=== PATIENT | female | born 1960 | race Native Hawaiian/Other Pacific Islander ===

== ENCOUNTER 2017-04-01 10:43 | Outpatient (CLI) | payer OTHER | END 2017-04-01 19:35 | disposition home or self-care (01) | LOC: RAD 10:43 | DX: R07.89 Other chest pain (principal) ==

== ENCOUNTER 2017-06-22 09:53 | Outpatient (CLI) | payer OTHER | END 2017-06-22 19:36 | disposition home or self-care (01) | LOC: RAD 09:53 | DX: R07.89 Other chest pain (principal); M25.562 Pain in left knee ==

== ENCOUNTER 2018-07-06 08:47 | Outpatient (CLI) | payer OTHER | END 2018-07-06 23:49 | disposition home or self-care (01) | LOC: MAMMO 08:47 | DX: Z12.31 Encounter for screening mammogram for malignant neoplasm of breast (principal) ==

== ENCOUNTER 2018-07-13 07:20 | Day surgery (SDC) | payer OTHER ==
[2018-07-13 08:26] LABS: PLATELET COUNT 276 K/uL (152-353)
== END 2018-07-13 10:40 | disposition home or self-care (01) ==
LOC: OR 07:20
PROVIDERS: Student in an Organized Health Care Education/Training Program
PROC: 0DBE8ZZ Excision of Large Intestine, Via Natural or Artificial Opening Endoscopic (ICD-10-PCS; principal; 2018-07-13)
DX: D12.6 Benign neoplasm of colon, unspecified (principal); Z12.11 Encounter for screening for malignant neoplasm of colon
CPT/HCPCS: 80053; 85027; J2001; J2250; J2405; J2704

== ENCOUNTER 2019-02-21 12:11 | Outpatient (CLI) | payer OTHER | END 2019-02-21 19:59 | disposition home or self-care (01) | LOC: CT 12:11 | DX: G44.89 Other headache syndrome (principal) ==

== ENCOUNTER 2019-02-28 11:52 | Outpatient (CLI) | payer OTHER | END 2019-02-28 20:26 | disposition home or self-care (01) | LOC: US 11:52 | DX: R42 Dizziness and giddiness (principal) ==

== ENCOUNTER 2020-03-19 15:05 | Outpatient (CLI) | payer OTHER | END 2020-03-19 23:23 | disposition home or self-care (01) | LOC: RAD 15:05 | PROVIDERS: ATTEND Nurse Practitioner Family | DX: M79.602 Pain in left arm (principal) ==

== ENCOUNTER 2020-08-09 13:47 | Outpatient (CLI) | payer OTHER | END 2020-08-09 22:23 | disposition home or self-care (01) | LOC: MRI 13:47 | PROVIDERS: ATTEND Registered Nurse | DX: M79.602 Pain in left arm (principal); M54.9 Dorsalgia, unspecified ==

== ENCOUNTER 2021-10-01 10:40 | Outpatient (CLI) | payer OTHER | END 2021-10-01 19:29 | disposition home or self-care (01) | LOC: RAD 10:40 | PROVIDERS: ATTEND Nurse Practitioner Family | DX: R22.32 Localized swelling, mass and lump, left upper limb (principal) ==

== ENCOUNTER 2021-12-25 11:09 | Outpatient (CLI) | payer OTHER | END 2021-12-25 19:37 | disposition home or self-care (01) | LOC: CT 11:09 | PROVIDERS: ATTEND Registered Nurse | DX: R51.9 Headache, unspecified (principal) ==